=== PATIENT | female | born 1975 | race Caucasian/White ===

== ENCOUNTER 2017-08-26 07:55 | Emergency (ER) | payer OTHER ==
[~2017-08-26] VITALS: Ht 167.6 cm; Wt 102.1 kg
[2017-08-26] MEDS ORDERED: SPIR100T2 (08:17)
[2017-08-26] MEDS ORDERED: BUSP15TA60 (08:17)
[2017-08-26] MEDS ORDERED: CITA10TA7 (08:17)
[2017-08-26] MEDS ORDERED: METF1000 (08:17)
[2017-08-26] MEDS ORDERED: TRAM50TA2 (08:17)
--- NOTE | 2017-08-26 08:23 | ED Fall/Injury ---
General Chief Complaint: Trauma-Non Activation Stated Complaint: LT LEG PAIN, TAILBONE PAIN Nursing Triage Note: ARRIVED VIA WC TO ROOM 07. STATES SHE FELL LAST NIGHT HURTING HER LEFT KNEE AND TAILBONE. STATES SHE WAS DRINKING ETOH WHEN SHE FELL. HAS NOT TAKEN ANY MEDICATIONS FOR THE PAIN. Source: patient Exam Limitations: no limitations History of Present Illness Time seen by provider: 08:08 Initial Comments This 41-year-old woman presents to emergency room with complaints of left knee pain and tailbone pain after having a fall last night. She had been out at a local establishment and admits that alcohol contributed to her injury. She was not feeling much pain last night but woke in severe pain this morning. She also reports falling again in her bathroom at 03:00 because ambulation was impaired due to left knee pain. She has a history of prior meniscus repair on the left knee and states she was informed she will likely eventually need a knee replacement on the left. She is able to ambulate with much difficulty. She cannot recall the details of the mechanism of injury but states the pain is concentrated in the coccyx and left knee. She denies hitting her head. She has no head or neck pain. There is no loss of consciousness. She has not taken any medications for the pain this morning. She is also nauseous this morning secondary to the pain. Allergies and Home Medications Allergies Coded Allergies: No Known Drug Allergies (Unverified , 08/26/17) Home Medications Buspirone HCl 15 Mg Tablet, (Reported) Citalopram Hydrobromide 10 Mg Tablet, (Reported) Hydrocodone/Acetaminophen 1 Each Tablet, 1-2 EACH PO Q6H PRN for PAIN, #20 Prescribed by: DAY SILVA on 08/26/17 0954 Metformin HCl 1,000 Mg Tablet, (Reported) Spironolactone 100 Mg Tablet, (Reported) Tramadol HCl 50 Mg Tablet, (Reported) Constitutional: no symptoms reported Eyes: No Symptoms Reported Ears, Nose, Mouth, Throat: no symptoms reported Respiratory: no symptoms reported Cardiovascular: no symptoms reported Gastrointestinal: see HPI Genitourinary: no symptoms reported : No Musculoskeletal: see HPI Skin: no symptoms reported Psychiatric/Neurological: No Symptoms Reported All Other Systems Reviewed Negative Unless Noted: Yes Past Uylsfqb-Ohjmda-Qdvsdj Hx Patient Social History Recent Foreign Travel: No Contact w/Someone Who Travel: No Recent Infectious Disease Expo: No Surgeries History of Surgeries: Yes (HERNIA WITH MESH, ABLASION, GASTRIC BYPASS) Surgeries: Abdominal, Appendectomy, Gallbladder, Orthopedic (left knee meniscus repair), Tubal Ligation Respiratory History of Respiratory Disorde: No Cardiovascular History of Cardiac Disorders: No Neurological History of Neurological Disord: No Reproductive System : No Hx Reproductive Disorders: Yes Female Reproductive Disorders: Polycystic Ovarian Dis BAR USEFUL OR BUSSER History: Tubal Ligation Genitourinary History of Genitourinary Disor: No Gastrointestinal History of Gastrointestinal Di: 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) Musculoskeletal History of Musculoskeletal Dis: No Endocrine History of Endocrine Disorders: No HEENT History of HEENT Disorders: No Cancer History of Cancer: No Psychosocial History of Psychiatric Problem: Yes Behavioral Health Disorders: Depression Integumentary History of Skin or Integumenta: No Family Medical History Significant Family History: No Pertinent Family Hx Physical Exam Vital Signs Vital Sign - Last 12Hours 08/26/17 08:00 Temp 98.0 Pulse 90 Resp 18 B/P (MAP) 122/90 Pulse Ox 96 Capillary Refill : Less Than 3 Seconds General Appearance: WD/WN, no apparent distress HEENT: PERRL/EOMI, normal ENT inspection Neck: normal inspection Cardiovascular: regular rate, rhythm, no edema, no murmur Respiratory: lungs clear, normal breath sounds, no respiratory distress, no accessory muscle use Gastrointestinal: normal bowel sounds, non tender, soft Back: other (no tenderness to palpation over the lumbar spine. Tenderness to palpation over the coccyx.) Extremities: normal inspection, other (tenderness to palpation over the left knee joint line and with movement of the patella. 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, no motor/sensory deficits, alert, normal mood/affect, oriented x 3 Skin: normal color, warm/dry Bhavna Coma Score Best Eye Response: (4) Open Spontaneously Best Verbal Response: (5) Oriented Best Motor Response: (6) Obeys Commands [place] Total: 15 Progress/Results/Core Measures Results/Orders My Orders Orders - DAY RAY MD Ketorolac Injection (Toradol Injection) (08/26/17 08:30) Knee, Left, 3 Views (08/26/17 08:19) Sacrum And Coccyx (08/26/17 08:19) Ondansetron Oral Dissolve Tab (Zofran (08/26/17 08:30) Hydrocodone/Apap 5/325 Tablet (Lortab 5 (08/26/17 09:15) Crutches (08/26/17 09:46) Oxycodone/Apap 5/325mg Tablet (Percocet (08/26/17 10:00) Medications Given in ED Current Medications Medications Dose Ordered Sig/Marisela Route Start Time Stop Time Status Last Admin Dose Admin Acetaminophen/ Hydrocodone Bitart 1 tab ONCE ONCE PO 08/26/17 09:15 08/26/17 09:16 DC 08/26/17 09:16 1 TAB Ketorolac Tromethamine 60 mg ONCE ONCE IM 08/26/17 08:30 08/26/17 08:31 DC 08/26/17 08:28 60 MG Ondansetron HCl 8 mg ONCE ONCE SL 08/26/17 08:30 08/26/17 08:31 DC 08/26/17 08:28 8 MG Vital Signs/I&O Vital Sign - Last 12Hours 08/26/17 08:00 Temp 98.0 Pulse 90 Resp 18 B/P (MAP) 122/90 Pulse Ox 96 Blood Pressure Mean: 101 Progress Note #1: Time: 08:31 Progress Note Toradol and Zofran are being given for pain management. Patient will then go for x-rays. Progress Note #2: Time: 09:12 Progress Note Pain has not improved much with Toradol. A hydrocodone has been ordered. X- rays have been reviewed by me and reports are pending. Nausea has improved. Progress Note #3: Time: 09:55 Progress Note No bony injury was identified. There is questionable coccygeal fracture. Patient is being referred to orthopedics. MRI was not available for further assessment in the ER. Patient was additionally given Percocet prior to dismissal for further pain control. She is being out fitted with crutches and a knee immobilizer. Diagnostic Imaging Diagonstic Imaging: Xray Plain Films/CT/US/NM/MRI: knee Comments X-ray of the left knee viewed by me and report reviewed. See report below: NAME: REUBEN CRAIG [facility] REC#: [id number] PT STATUS: REG ER : 1975 PHYSICIAN: DAY RAY MD ADMIT DATE: 08/26/17/ER Draft Date of Exam:08/26/17 KNEE, LEFT, 3 VIEWS Three views of the left knee. INDICATION: Fall. FINDINGS: No fracture, dislocation or radiopaque foreign body is seen. There is a small to moderate suprapatellar effusion identified. Minimal marginal osteophytes are seen with no significant joint space narrowing. IMPRESSION: Uzvpz-ip-daitnqmd suprapatellar effusion is evident. Minimal degenerative changes. Dictated on workstation # [id number] Dict: 08/26/17911 Trans: 08/26/17916 [facility] [id number] Interpreted by: BUDDY MONSIVAIS MD Diagonstic Imaging: Xray Plain Films/CT/US/NM/MRI: other (sacrum and coccyx) Comments X-ray viewed by me and report reviewed. See report below: NAME: REUBEN CRAIG [facility] REC#: [id number] PT STATUS: REG ER : 1975 PHYSICIAN: DAY RAY MD ADMIT DATE: 08/26/17/ER Draft Date of Exam:08/26/17 SACRUM AND COCCYX EXAMINATION: 3 views of the sacrum and coccyx. INDICATION: Fall. FINDINGS: There is a slightly inward configuration of the distal coccyx. It is uncertain if this is posttraumatic. No prior studies are available for comparison. No obvious fracture. The SI joints have normal alignment. IMPRESSION: Prominent inward curvature of the distal coccyx is seen. This could potentially be related to injury of indeterminate age. No definite fracture. If there is high index of suspicion, then CT scan of the sacrum and coccyx would be helpful. Dictated on workstation # [id number] Dict: 08/26/17912 Trans: 08/26/17918 [facility] [phone] Interpreted by: BUDDY MONSIVAIS MD Departure Impression Impression: Primary Impression: Fall on same level Qualified Codes: W18.30XA - Fall on same level, unspecified, initial encounter Additional Impressions: Left knee pain Qualified Codes: M25.562 - Pain in left knee Coccyx pain Disposition: 01 HOME, SELF-CARE Condition: Improved Departure-Patient Inst. Referrals: NO,LOCAL PHYSICIAN (PCP/Family) Primary Care Physician Add. Discharge Instructions: Rest your injuries as needed. Icing in 20 minute intervals to affected areas may be helpful in reducing pain and swelling. Follow-up with your orthopedic provider as soon as possible for reassessment. Use your crutches and knee immobilizer or Paco wrap as needed for support. Use your tramadol (Ultram) and Tylenol (acetaminophen) for gqjc-bo-wwzaprrl pain. Use the hydrocodone as prescribed for more severe pain. It may be advisable to use an over-the- counter stool softener such as Colace while you're using narcotic pain medications. You should not drive or operate machinery while on hydrocodone. Discuss the potential for further imaging with your orthopedic or primary care provider. Imaging might include MRI of the knee and MRI or CT of the pelvis. Return to care if symptoms worsen. You may use an innertube or donut pillow to help alleviate pressure on the tailbone. Avoid frequent or excessive alcohol consumption as this may affect your gastrointestinal health after having gastric bypass. All discharge instructions reviewed with patient and/or family. Voiced understanding. Scripts Hydrocodone/Acetaminophen (Hydrocodon -Acetaminophen 5-325) 1 Each Tablet 1-2 EACH PO Q6H Y for PAIN, #20 TAB Prov: DAY RAY MD 08/26/17 DAY RAY MD Aug 26, 2017 08:23
[2017-08-26] MEDS ORDERED: KETOROLAC 60 MG/2 ML VIAL IM ONE (08:30)
[2017-08-26] MEDS ORDERED: ONDANSETRON 4 MG (ZOFRAN) ORAL DISSOLVE TAB SL ONE (08:30)
[2017-08-26] MEDS ORDERED: HYDROcodone/APAP 5 MG/325 MG (LORTAB) TAB PO ONE (09:15)
--- NOTE | 2017-08-26 09:17 | Diagnostic Imaging Report ---
Three views of the left knee. INDICATION: Fall. FINDINGS: No fracture, dislocation or radiopaque foreign body is seen. There is a small to moderate suprapatellar effusion identified. Minimal marginal osteophytes are seen with no significant joint space narrowing. IMPRESSION: Lkmgo-gg-lxfidjov suprapatellar effusion is evident. Minimal degenerative changes. Dictated by: Dictated on workstation # [id number]
--- NOTE | 2017-08-26 09:20 | Diagnostic Imaging Report ---
EXAMINATION: 3 views of the sacrum and coccyx. INDICATION: Fall. FINDINGS: There is a slightly inward configuration of the distal coccyx. It is uncertain if this is posttraumatic. No prior studies are available for comparison. No obvious fracture. The SI joints have normal alignment. IMPRESSION: Prominent inward curvature of the distal coccyx is seen. This could potentially be related to injury of indeterminate age. No definite fracture. If there is high index of suspicion, then CT scan of the sacrum and coccyx would be helpful. Dictated by: Dictated on workstation # [id number]
[2017-08-26] MEDS ORDERED: HYDR-3812 PO (09:54)
[2017-08-26] MEDS ORDERED: oxyCODONE/APAP 5/325MG (PERCOCET 5) TABLET PO ONE (10:00)
[2017-08-26 10:08] VITALS: BP 126/87
== END 2017-08-26 10:08 | disposition home or self-care (01) ==
LOC: ER 08:00
DX: M25.562 Pain in left knee (principal); M53.3 Sacrococcygeal disorders, not elsewhere classified; F32.9 Major depressive disorder, single episode, unspecified; Z79.84 Long term (current) use of oral hypoglycemic drugs; Z90.49 Acquired absence of other specified parts of digestive tract; Z98.51 Tubal ligation status; Z98.84 Bariatric surgery status; Z87.19 Personal history of other diseases of the digestive system; W18.30XA Fall on same level, unspecified, initial encounter; Y92.002 Bathroom of unspecified non-institutional (private) residence as the place of occurrence of the external cause
CPT/HCPCS: 72220; 73562; 96372; 99284

== ENCOUNTER 2017-12-04 09:03 | Observation (INO) | payer BC, OTHER ==
[~2017-12-04] VITALS: Ht 167.6 cm; Wt 108.6 kg
[2017-12-04] VITALS (9 sets, daily range): BP systolic 97–131; BP diastolic 53–72
[~2017-12-04 09:03] MED LIST: ACHD5005 PO; BUSP15TA60; CITA10TA7; METF1000 PO; SPIR100T2 PO; TRAM50TA2
[2017-12-04] MEDS ORDERED: ASPIRIN 81 MG CHEW (CHILDREN'S ASA) PO ONE (10:15)
[2017-12-04 10:41] LABS: BASOPHILS % (AUTO) 1 % (0-10); EOSINOPHILS # (AUTO) 0.1 10^3/uL (0.0-0.3); EOSINOPHILS % (AUTO) 2 % (0-10); HEMATOCRIT 37 % (35-52); HEMOGLOBIN 12.3 G/DL (11.5-16.0); LYMPHOCYTES # (AUTO) 1.7 X 10^3 (1.0-4.0); LYMPHOCYTES % (AUTO) 30 % (12-44); MEAN CORPUSCULAR HEMOGLOBIN 29 PG (25-34); MEAN CORPUSCULAR HGB CONC 34 G/DL (32-36); MEAN CORPUSCULAR VOLUME 85 FL (80-99); MEAN PLATELET VOLUME 8.6 FL (7.4-10.4); MONOCYTES # (AUTO) 0.5 X 10^3 (0.0-1.0); MONOCYTES % (AUTO) 8 % (0-12); NEUTROPHILS # (AUTO) 3.5 X 10^3 (1.8-7.8); NEUTROPHILS % (AUTO) 60 % (42-75); PLATELET COUNT 265 10^3/uL (130-400); RED BLOOD COUNT 4.29 10^6/uL (4.35-5.85); RED CELL DISTRIBUTION WIDTH 12.9 % (10.0-14.5); WHITE BLOOD COUNT 5.8 10^3/uL (4.3-11.0)
[2017-12-04 10:53] LABS: PROTHROMBIN TIME PATIENT 13.4 SEC (12.2-14.7)
[2017-12-04 10:56] LABS: FIBRIN DEGRADATION PRODUCTS 0.88 UG/ML (0.00-0.49)
[2017-12-04 11:01] LABS: ALANINE AMINOTRANSFERASE 70 U/L (0-55); ALBUMIN 3.8 GM/DL (3.2-4.5); ALKALINE PHOSPHATASE 70 U/L (40-136); BILIRUBIN,TOTAL 0.4 MG/DL (0.1-1.0); BUN/CREATININE RATIO 19; CALCIUM 9.4 MG/DL (8.5-10.1); CARBON DIOXIDE 25 MMOL/L (21-32); CHLORIDE 105 MMOL/L (98-107); CREATININE SERUM 0.64 MG/DL (0.60-1.30); GFR ESTIMATED > 60; GLUCOSE 92 MG/DL (70-105); MAGNESIUM 1.9 MG/DL (1.8-2.4); POTASSIUM 4.4 MMOL/L (3.6-5.0); SODIUM 139 MMOL/L (135-145); TOTAL PROTEIN 6.6 GM/DL (6.4-8.2)
--- NOTE | 2017-12-04 11:04 | Diagnostic Imaging Report ---
EXAM: CHEST 1 VIEW, AP/PA ONLY INDICATION: Chest pain. Dyspnea. COMPARISON: None. FINDINGS: Normal heart size and pulmonary vascularity. No focal pulmonary opacity, pleural effusion or pneumothorax. Osseous structures are unremarkable. Surgical clips in the upper abdomen. IMPRESSION: No acute cardiopulmonary findings. Dictated by: Dictated on workstation # [id number]
[2017-12-04 11:07] LABS: MYOGLOBIN SERUM 30.3 NG/ML (10.0-92.0)
--- NOTE | 2017-12-04 11:10 | ED Chest Pain ---
General Chief Complaint: Chest Pain Stated Complaint: CP Source: patient Exam Limitations: no limitations History of Present Illness Time seen by provider: 09:18 Initial Comments This 42-year-old woman presents to emergency room with left upper chest pain and some shortness of breath that started Tuesday. She had anterior cruciate ligament reconstruction of her left knee on October 25. She has a prior history of smoking and quit 2-3 months ago. She has family history of heart disease. Her father had heart disease in his 50s. She is concerned about possible pulmonary embolism or other causes of chest pain. She is pain-free at the time of presentation. The pain has no alleviating or exacerbating factors. She denies any nausea, vomiting, diarrhea, or lightheadedness. Allergies and Home Medications Allergies Coded Allergies: NSAIDS (Non-Steroidal Anti-Inflamma (Verified Allergy, Unknown, 12/04/17) States not to take due to gastric bypass. aspirin (Verified Allergy, Unknown, 12/04/17) States instructed not to take due to gastric bypass Home Medications Citalopram Hydrobromide 40 Mg Tablet, 40 MG PO DAILY, (Reported) Docusate Sodium 100 Mg Capsule, 100-300 MG PO DAILY, (Reported) TAKES 1 TO 3 (100 MG) CAPSULES Hydrocodone/Acetaminophen 1 Each Tablet, 1-2 TAB PO Q6H PRN for PAIN-MODERATE, ( Reported) Loratadine 10 Mg Tablet, 10 MG PO DAILY, (Reported) Metformin HCl 1,000 Mg Tablet, 1,000 MG PO DAILY, (Reported) LAST FILLED 02/18/17 #180 Spironolactone 100 Mg Tablet, 100 MG PO DAILY, (Reported) LAST FILLED 08/21/17 #90 [Leg Cramps Pm] , 2 TAB PO PRN PRN for LEG CRAMPS, (Reported) Review of Systems Constitutional: no symptoms reported EENTM: No Symptoms Reported Respiratory: See HPI, Shortness of Air Cardiovascular: See HPI, Chest Pain Gastrointestinal: No Symptoms Reported Genitourinary: No Symptoms Reported Musculoskeletal: see HPI Skin: no symptoms reported Psychiatric/Neurological: No Symptoms Reported Endocrine: No Symptoms Reported Hematologic/Lymphatic: No Symptoms Reported Past Gullwcz-Zwzsfl-Lpglab Hx Patient Social History Recent Foreign Travel: No Contact w/Someone Who Travel: No Surgeries History of Surgeries: Yes (HERNIA WITH MESH, UTERINE ABLASION, GASTRIC BYPASS) Surgeries: Abdominal, Appendectomy, Breast (Lumpectomy), Gallbladder, Orthopedic, Tonsillectomy, Tubal Ligation Respiratory History of Respiratory Disorde: Yes Respiratory Disorders: Asthma Cardiovascular History of Cardiac Disorders: No Neurological History of Neurological Disord: No Reproductive System : No Hx Reproductive Disorders: Yes Female Reproductive Disorders: 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 Genitourinary History of Genitourinary Disor: No Gastrointestinal History of Gastrointestinal Di: 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) Gastrointestinal Disorders: Irritable Bowel Musculoskeletal History of Musculoskeletal Dis: No Endocrine History of Endocrine Disorders: No HEENT History of HEENT Disorders: No Cancer History of Cancer: No Psychosocial History of Psychiatric Problem: Yes Behavioral Health Disorders: Depression Integumentary History of Skin or Integumenta: No Family Medical History Significant Family History: Heart Disease (Father age 50s) Physical Exam Vital Signs Vital Sign - Last 12Hours 12/04/17 09:10 Temp 97.5 Pulse 84 Resp 16 B/P (MAP) 132/80 (97) Pulse Ox 98 O2 Delivery Room Air Capillary Refill : General Appearance: No Apparent Distress, WD/WN HEENT: PERRL/EOMI, Normal ENT Inspection, Pharynx Normal Neck: Normal Inspection Respiratory: Chest Non Tender, Lungs Clear, Normal Breath Sounds, No Accessory Muscle Use, No Respiratory Distress Cardiovascular: Regular Rate, Rhythm, No Edema, No Murmur, Normal Peripheral Pulses Gastrointestinal: Normal Bowel Sounds, Non Tender, Soft Extremity: No Calf Tenderness, No Pedal Edema, Other (Left knee in a surgical dressing and brace) Neurologic/Psychiatric: Alert, Oriented x3, No Motor/Sensory Deficits, Normal Mood/Affect, pail tester II-XII Norm as Tested Skin: Normal Color, Warm/Dry Progress/Results/Core Measures Results/Orders Lab Results Laboratory Tests Test 12/04/17 10:30 Range/Units White Blood Count 5.8 4.3-11.0 10^3/uL Red Blood Count 4.29 L 4.35-5.85 10^6/uL Hemoglobin 12.3 11.5-16.0 G/DL Hematocrit 37 35-52 % Mean Corpuscular Volume 85 80-99 FL Mean Corpuscular Hemoglobin 29 25-34 PG Mean Corpuscular Hemoglobin Concent 34 32-36 G/DL Red Cell Distribution Width 12.9 10.0-14.5 % Platelet Count 265 130-400 10^3/uL Mean Platelet Volume 8.6 7.4-10.4 FL Neutrophils (%) (Auto) 60 42-75 % Lymphocytes (%) (Auto) 30 12-44 % Monocytes (%) (Auto) 8 0-12 % Eosinophils (%) (Auto) 2 0-10 % Basophils (%) (Auto) 1 0-10 % Neutrophils # (Auto) 3.5 1.8-7.8 X 10^3 Lymphocytes # (Auto) 1.7 1.0-4.0 X 10^3 Monocytes # (Auto) 0.5 0.0-1.0 X 10^3 Eosinophils # (Auto) 0.1 0.0-0.3 10^3/uL Basophils # (Auto) 0.0 0.0-0.1 10^3/uL Prothrombin Time 13.4 12.2-14.7 SEC INR Comment 1.0 0.8-1.4 Activated Partial Thromboplast Time 32 24-35 SEC D-Dimer 0.88 H 0.00-0.49 UG/ML Sodium Level 139 135-145 MMOL/L Potassium Level 4.4 3.6-5.0 MMOL/L Chloride Level 105 98-107 MMOL/L Carbon Dioxide Level 25 21-32 MMOL/L Anion Gap 9 5-14 MMOL/L Blood Urea Nitrogen 12 7-18 MG/DL Creatinine 0.64 0.60-1.30 MG/DL Estimat Glomerular Filtration Rate > 60 BUN/Creatinine Ratio 19 Glucose Level 92 70-105 MG/DL Calcium Level 9.4 8.5-10.1 MG/DL Magnesium Level 1.9 1.8-2.4 MG/DL Total Bilirubin 0.4 0.1-1.0 MG/DL Aspartate Amino Transf (AST/SGOT) 64 H 5-34 U/L Alanine Aminotransferase (ALT/SGPT) 70 H 0-55 U/L Alkaline Phosphatase 70 40-136 U/L Myoglobin 30.3 10.0-92.0 NG/ML Troponin I < 0.30 <0.30 NG/ML Total Protein 6.6 6.4-8.2 GM/DL Albumin 3.8 3.2-4.5 GM/DL My Orders Orders - DAY RAY MD Ekg Tracing (12/04/17 09:18) Continuous Ekg Monitoring (12/04/17 09:18) Cbc With Automated Diff (12/04/17 10:05) Magnesium (12/04/17 10:05) Chest 1 View, Ap/Pa Only (12/04/17 10:05) Cardiac Profile 1 (12/04/17 10:05) Comprehensive Metabolic Panel (12/04/17 10:05) Myoglobin Serum (12/04/17 10:05) Protime With Inr (12/04/17 10:05) Partial Thromboplastin Time (12/04/17 10:05) O2 (12/04/17 10:05) Monitor-Rhythm Ecg Trace Only (12/04/17 10:05) Aspirin Chewable Tablet (Baby Aspirin Ch (12/04/17 10:15) Saline Lock/Iv-Start (12/04/17 10:05) Fibrin Degradation Products (12/04/17 10:05) Ct Angio Chest W (12/04/17 11:05) Iohexol Injection (Omnipaque 350 Mg/Ml 1 (12/04/17 11:30) Sodium Chloride Flush (Catheter Flush Sy (12/04/17 11:30) Ns (Ivpb) (Sodium Chloride 0.9% Ivpb Bag (12/04/17 11:30) Pharmacy Communication (Pharmacy Communi (12/04/17 11:22) Medications Given in ED Vital Signs/I&O Vital Sign - Last 12Hours 12/04/17 09:10 Temp 97.5 Pulse 84 Resp 16 B/P (MAP) 132/80 (97) Pulse Ox 98 O2 Delivery Room Air Progress Note #1: Progress Note Patient was experiencing chest pain in the postoperative period. She also had shortness of breath. Pain had resolved by the time of arrival. Pulmonary embolus was of concern to her given her recent surgery. Patient also has a smoking history, family history of heart disease, and is over age 40. She therefore has some risk factors for cardiac disease as well. Chest pain protocol was followed. She received aspirin. EKG showed no ischemia. D-dimer was mildly elevated. CT angiogram of the chest has been ordered. Progress Note #2: Time: 12:30 Progress Note Patient's workup was unremarkable. She had one brief recurrence of pain but has otherwise been pain free. Case was reviewed with Dr. Winters to recommended offering patient admission for observation versus close outpatient follow-up for stress testing. Patient elects to be admitted which is certainly reasonable. Dr. Winters presented to the emergency room to evaluate the patient personally. ECG Initial ECG Impression Date: Dec 04, 2017 Initial ECG Impression Time: 09:18 Initial ECG Rate: 63 Initial ECG Rhythm: Normal Sinus Initial ECG Impression: Normal Comment Sinus rhythm with no ST elevation or depression. Automated read states incomplete right bundle branch block. No axis deviation. Diagnostic Imaging Diagonstic Imaging: Xray Plain Films/CT/US/NM/MRI: chest Comments Chest x-ray viewed by me and report reviewed. See report below: NAME: REUBEN CRAIG [facility] REC#: [id number] PT STATUS: REG ER : 1975 PHYSICIAN: DAY RAY MD ADMIT DATE: 12/04/17/ER Draft Date of Exam:12/04/17 CHEST 1 VIEW, AP/PA ONLY EXAM: CHEST 1 VIEW, AP/PA ONLY INDICATION: Chest pain. Dyspnea. COMPARISON: None. FINDINGS: Normal heart size and pulmonary vascularity. No focal pulmonary opacity, pleural effusion or pneumothorax. Osseous structures are unremarkable. Surgical clips in the upper abdomen. IMPRESSION: No acute cardiopulmonary findings. Dictated on workstation # [id number] Dict: 12/04/17 1058 Trans: 12/04/17 1104 WIL [id number] Interpreted by: TONI ZHANG MD Diagonstic Imaging: CT Plain Films/CT/US/NM/MRI: chest Comments CT angiogram of the chest was viewed by me and report reviewed. See report below: NAME: REUBEN CRAIG [facility] REC#: [id number] PT STATUS: REG ER : 1975 PHYSICIAN: DAY RAY MD ADMIT DATE: 12/04/17/ER Draft Date of Exam:12/04/17 CT ANGIO CHEST W PROCEDURE: CT angiography of the chest with contrast. TECHNIQUE: Multiple contiguous axial images were obtained through the chest after uneventful bolus administration of intravenous contrast. Reconstructed CTA MIP acquisitions were also performed. INDICATION: Chest pain, shortness of breath, recent knee surgery. COMPARISON: None. FINDINGS: The heart, pulmonary arteries and aorta are grossly normal. There is no pulmonary embolism. There is no lymphadenopathy, pleural or pericardial effusion. The lungs are clear. There is no focal infiltrate or atelectasis. No pneumothorax is identified. Osseous structures are age-appropriate. Visualized upper abdominal organs demonstrate no acute abnormality. IMPRESSION: Negative CT angiogram of the chest. No pulmonary embolism identified. Dictated on workstation # [id number] Dict: 12/04/17 1139 Trans: 12/04/17 1147 [id number] Interpreted by: MONICA GUILLEN Departure Communication (Admissions) Time/Spoke to Admitting Phy: 13:[address] Regan Time/Spoke to Consulting Phy: 12:30 Communication/Consulting Dr. Winters Impression Impression: Primary Impression: Chest pain Qualified Codes: R07.9 - Chest pain, unspecified Additional Impression: Dyspnea Qualified Codes: R06.00 - Dyspnea, unspecified Disposition: 09 ADMITTED INPATIENT Condition: Improved Admissions Decision to Admit Reason: Admit from ER (General) Decision to Admit/Date: Dec 04, 2017 Time/Decision to Admit Time: 12:30 Departure-Patient Inst. Referrals: NO,LOCAL PHYSICIAN (PCP) Primary Care Physician DAY RAY MD Dec 04, 2017 11:10
[2017-12-04] MEDS ORDERED: CATHETER FLUSH 10 ML SYR IV PRN ×2 (11:30→16:45)
[2017-12-04] MEDS ORDERED: IOHEXOL 350 MG/ML 150 ML (OMNIPAQUE 350) VIAL IV ONE (11:30)
[2017-12-04] MEDS ORDERED: NS 100 ML (IVPB) BAG IV ONE (11:30)
--- NOTE | 2017-12-04 11:48 | Diagnostic Imaging Report ---
PROCEDURE: CT angiography of the chest with contrast. TECHNIQUE: Multiple contiguous axial images were obtained through the chest after uneventful bolus administration of intravenous contrast. Reconstructed CTA MIP acquisitions were also performed. INDICATION: Chest pain, shortness of breath, recent knee surgery. COMPARISON: None. FINDINGS: The heart, pulmonary arteries and aorta are grossly normal. There is no pulmonary embolism. There is no lymphadenopathy, pleural or pericardial effusion. The lungs are clear. There is no focal infiltrate or atelectasis. No pneumothorax is identified. Osseous structures are age-appropriate. Visualized upper abdominal organs demonstrate no acute abnormality. IMPRESSION: Negative CT angiogram of the chest. No pulmonary embolism identified. Dictated by: Dictated on workstation # [id number]
--- NOTE | 2017-12-04 13:36 | Consultation-Cardiology ---
HPI-Cardiology Cardiology Consultation: Date of Consultation 12/04/17 Date of Admission Attending Physician Admitting Physician Genny,Local Physician Consulting Physician Desirae WINTERS MD HPI: Time Seen by Provider: 13:33 Chief Complaint: Chest pain This is a 42-year-old lady who has history of active smoking and premature coronary artery disease in the family. She had a recent knee surgery. She presented left-sided chest pain. No radiation or excessive abating or relieving factors. Moderate intensity. No associated other symptoms. She denies shortness of breath, syncope, near-syncope, palpitation, lower extremity swelling. Review of Systems-Cardiology Review of Systems Constitutional: No As described under HPI, No no symptoms reported, No chills, No fever, No lightheadedness, No malaise, No tiredness, No weight loss, No weight gain, No other Eyes: No As described under HPI, No no symptoms reported, No blindness, No blurred vision, No contact lenses, No drainage, No decreased acuity, No foreign body sensation, No glasses, No inflammation, No pain, No photophobia, No previous injury, No shadows, No tunnel vision, No other, No vision change Ears/Nose/Throat: No As described under HPI, No no symptoms reported, No chronic hearing loss, No epistaxis, No ear discharge, No ear pain, No loose teeth, No mouth pain, No mouth swelling, No nasal drainage, No nose pain, No recent hearing loss, No throat pain, No throat swelling, No ulcerations, No other Respiratory: No no symptoms reported, No As described under HPI, No cough, No orthopnea, No shortness of breath, No SOB with excertion, No SOB at rest, No stridor, No wheezing, No other Cardiovascular: chest pain Gastrointestinal: No no symptoms reported, No As described under HPI, No abdomen distended, No abdominal pain, No blood streaked bowels, No constipation , No diarrhea, No difficulty swallowing, No nausea, No poor appetite, No poor fluid intake, No rectal bleeding, No vomiting, No other, No nausea/vomiting/ diarrhea, No stool coloration changes Genitourinary: No no symptoms reported, No As described under HPI, No burning, No dysuria, No discharge, No frequency, No flank pain, No hematuria, No incontinence, No pain, No urgency, No other, No urine frequency changes, No urine coloration changes Musculoskeletal: No no symptoms reported, No As describe under HPI, No back pain, No gout, No joint pain, No joint swelling, No muscle pain, No muscle stiffness, No neck pain, No other Skin: No no symptoms reported, No As described under HPI, No change in color, No change in hair/nails, No dryness, No lesions, No lumps, No rash, No other, No skin related problems, No ulcerations, No rash on exposed areas, No ulcerations on exposed areas Psychiatric/Neurological: No no symptoms reported, No As described under HPI, No anxiety, No depression, No emotional problems, No headache, No numbness, No pre-existing deficit, No seizure, No tingling, No tremors, No weakness, No other , No focal weakness, No syncope [id number]-[id number] Hx Patient Social History Recent Foreign Travel: No Past Medical History PMH As described under Assessment. Allergies and Home Medications Allergies Coded Allergies: No Known Drug Allergies (Unverified , 08/26/17) Home Medications Buspirone HCl 15 Mg Tablet, (Reported) Citalopram Hydrobromide 10 Mg Tablet, (Reported) Hydrocodone Bit/Acetaminophen 1 Each Tablet, 1-2 EACH PO Q6H PRN for PAIN, #20 Prescribed by: DAY SILVA on 08/26/17 0954 Metformin HCl 1,000 Mg Tablet, (Reported) Spironolactone 100 Mg Tablet, (Reported) Tramadol HCl 50 Mg Tablet, (Reported) Physical Exam-Cardiology Physical Exam Vital Signs/I&O Capillary Refill : Constitutional: No appears stated age, No AAO x 3, No apparent distress, No PERRL, No well-developed, No well-nourished, No other HEENT: No PERRL, No normal ENT inspection, No TMs normal, No pharynx normal, No scleral icterus (R), No scleral icterus (L), No pale conjunctivae (R), No pale conjunctivae (L), No photophobia, No TM abnormal (R), No TM abnormal (L), No pharyngeal erythema, No tonsillar exudate, No other, No discharge, No EOMI, No hearing is well preserved, No hard of hearing, No oral hygience is good, No ulceration, No xanthelasmas are seen Neck: No non-tender, No full range of motion, No supple, No normal inspection, No carotid bruit, No limited range of motion, No lymphadenopathy (R), No lymphadenopathy (L), No tender lateral, No tender midline, No thyromegaly, No other, No carotid pulses are 2 + bilaterally, No with good upstrokes Respiratory: No accessory muscle use, No respiratory distress, No chest tender , No chest expansion is symmetric, No chest is bilaterally symmetric, No lungs clear to percussion, No lungs clear to auscultation, No crackles, No rhonchi, No rales, No stridor, No wheezing, No pleural rub, No other Cardiovascular: regular rate-rhythm, No irregularly irregular, No extra beats, No parasternal heave is noted, No JVD, No edema, No bradycardia, No tachycardia , No point of maximal impulse, No cardiac thrills are palpable, No S1 and S2, No gallop/S3, No gallop/S4, No diastolic murmur, No systolic murmur, No friction rub, No click, No other Gastrointestinal: No tender, No soft, No round, No distended, No pulsatile mass , No organomegaly, No guarding, No rebound, No tenderness, No hernia, No mass, No audible bowel sounds, No abnormal bowel sounds, No abdominal bruits, No spleenomegaly, No other Rectal: deferred Extremities: No normal range of motion, No non-tender, No normal inspection, No pedal edema, No calf tenderness, No normal capillary refill, No pelvis stable , No calf tenderness, No inflammation, No pedal edema, No slow capillary refill , No swelling, No other, No abrasion, No clubbing, No cyanosis, No ecchymosis, No laceration, No no lower extremity edema bilateral, No significant edema, No tenderness, No wound Neurologic/Psychiatric: No paste maker II-XII nml as tested, No no motor/sensory deficits, No alert, No normal mood/affect, No oriented x 3, No abnormal cerebellar tests, No abnormal paste maker II-XII, No abnormal gait, No aphasia, No EOM palsy, No facial droop, No motor weakness, No sensory deficit, No depressed affect, No disoriented x 3, No other, No grossly intact, No power is 5/5 both on sides Skin: No normal color, No warm/dry, No cyanosis, No cool, No diaphoresis, No damp, No ecchymosis, No jaundice, No mottled, No pallor, No rash, No tattoos/ piercings, No ulcerations, No rash on exposed areas, No ulcerations on exposed areas, No other Data Review Labs Laboratory Tests 12/04/17 10:30: White Blood Count 5.8, Red Blood Count 4.29L, Hemoglobin 12.3, Hematocrit 37, Mean Corpuscular Volume 85, Mean Corpuscular Hemoglobin 29, Mean Corpuscular Hemoglobin Concent 34, Red Cell Distribution Width 12.9, Platelet Count 265, Mean Platelet Volume 8.6, Neutrophils (%) (Auto) 60, Lymphocytes (%) (Auto) 30, Monocytes (%) (Auto) 8, Eosinophils (%) (Auto) 2, Basophils (%) (Auto) 1, Neutrophils # (Auto) 3.5, Lymphocytes # (Auto) 1.7, Monocytes # (Auto) 0.5, Eosinophils # (Auto) 0.1, Basophils # (Auto) 0.0, Prothrombin Time 13.4, INR Comment 1.0, Activated Partial Thromboplast Time 32, D-Dimer 0.88H, Sodium Level 139, Potassium Level 4.4, Chloride Level 105, Carbon Dioxide Level 25, Anion Gap 9, Blood Urea Nitrogen 12, Creatinine 0.64, Estimat Glomerular Filtration Rate > 60, BUN/Creatinine Ratio 19, Glucose Level 92, Calcium Level 9.4, Magnesium Level 1.9, Total Bilirubin 0.4, Aspartate Amino Transf (AST/SGOT ) 64H, Alanine Aminotransferase (ALT/SGPT) 70H, Alkaline Phosphatase 70, Myoglobin 30.3, Troponin I < 0.30, Total Protein 6.6, Albumin 3.8 ECG Impression ECG Initial ECG Rhythm: Normal Sinus Initial ECG Impression: Normal A/P-Cardiology Assessment/Admission Diagnosis Chest pain, active smoking, elevated d-dimer, recent knee surgery. Plan Chest pain with elevated d-dimer. Because of recent knee surgery CT angiography of the chest was done which ruled out pulmonary embolism. Patient has history of active smoking and premature coronary artery disease in the family therefore we will do a rule out with serial troponins. EKG is negative. Pharmacological nuclear stress test in the morning. I will also request an echocardiogram. Smoking cessation was strongly recommended. Thank you for your consultation. Please call me if you have any questions. Noam Winters MD, FACP, FACC, FSCAI, FHRS, CCDS Interventional Cardiology Cardiac Electrophysiology Vascular Medicine and Endovascular Interventions Desirae WINTERS MD Dec 04, 2017 13:36
--- NOTE | 2017-12-04 14:18 | History & Physical-Hospitalist ---
HPI History of Present Illness: HPI/Chief Complaint CC: Chest pain HPI: This is a 42yoWF patient with h/o asthma with rare flare, PCOS and FH of premature CAD who presents to the ER w/c/o CP. She had left knee ACL surgery by Dr Martinez on 11/25/17 and has been in a immobilizer since surgery who began having chest pressure and worsening as the hours passed last night and today. She had a negative w/u in ER including CT chest angiogram to r/o PE. Due to multiple risk factors and FH she was deemed meeting criteria for EST for risk stratification per Dr Winters. She reports a yeast infection since abx given after knee surgery and the fact that she used to be on Advair and Singulair for asthma but has not taken it for years but suspects the chest pain may be related to asthma. Source: patient Exam Limitations: no limitations Date Seen 12/04/17 Time Seen by Provider: 14:00 Attending Physician Mariah Regan DO PCP No,Local Physician Referring Physician Date of Admission Dec 04, 2017 at 13:43 Home Medications & Allergies Home Medications Reviewed patient Home Medication Reconciliation Form Allergies Allergies Coded Allergies NSAIDS (Non-Steroidal Anti-Inflamma (Verified Allergy, Unknown, 12/04/17) States not to take due to gastric bypass. aspirin (Verified Allergy, Unknown, 12/04/17) States instructed not to take due to gastric bypass Past [id number]-[id number] Hx Patient Social History Marrital Status: Employed/Student: employed ([employer] ) Smoking Status: Former Smoker (cloves) Recent Foreign Travel: No Contact w/other who traveled: No Surgeries Yes (HERNIA WITH MESH, ABLASION, GASTRIC BYPASS) Abdominal, Appendectomy, Gallbladder, Orthopedic (left knee ACL 11/25/17 Dr Martinez), Tubal Ligation Respiratory Yes Asthma Cardiovascular No Neurological No Reproductive System Hx Reproductive Disorders: Yes Female Reproductive Disorders: Polycystic Ovarian Dis RAT POISONER History: Tubal Ligation Genitourinary No Gastrointestinal 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) Irritable Bowel Musculoskeletal No Endocrine History of Endocrine Disorders: No HEENT History of HEENT Disorders: No Cancer No Psychosocial History of Psychiatric Problem: Yes Behavioral Health Disorders: Depression Integumentary History of Skin or Integumenta: No Family Medical History Significant Family History: No Pertinent Family Hx Review of Systems Constitutional: see HPI EENTM: no symptoms reported Respiratory: short of breath Cardiovascular: chest pain Gastrointestinal: nausea Genitourinary: no symptoms reported Musculoskeletal: joint pain (left knee) Skin: no symptoms reported Psychiatric/Neurological: No Symptoms Reported All Other Systems Reviewed Negative Unless Noted: Yes Physical Exam Physical Exam Vital Signs Capillary Refill : General Appearance: No Apparent Distress, WD/WN, Obese Eyes: Bilateral Eye Normal Inspection, Bilateral Eye PERRL HEENT: PERRL/EOMI, Normal ENT Inspection, Pharynx Normal Neck: Full Range of Motion, Normal Inspection, Non Tender, Supple, Carotid Bruit Respiratory: Chest Non Tender, Lungs Clear, Normal Breath Sounds, No Accessory Muscle Use, No Respiratory Distress Cardiovascular: Regular Rate, Rhythm, No Edema, No Gallop, No JVD, No Murmur, Normal Peripheral Pulses Gastrointestinal: Normal Bowel Sounds, No Organomegaly, No Pulsatile Mass, Non Tender, Soft Back: Normal Inspection, No CVA Tenderness, No Vertebral Tenderness Extremity: Normal Capillary Refill, Normal Inspection, Normal Range of Motion ( except left leg due to immobilizer in place), Non Tender, No Calf Tenderness, No Pedal Edema Neurologic/Psychiatric: Alert, Oriented x3, No Motor/Sensory Deficits, Normal Mood/Affect Skin: Normal Color, Warm/Dry Lymphatic: No Adenopathy Results Results/Procedures Lab Laboratory Tests 12/04/17 10:30 Assessment/Plan Admission Diagnosis Assessment: Chest pain with multiple risk factors for acute coronary syndrome PCOS Acute vaginal yeast infection Asthma with rare flare not on MDI's for years Former smoker of cloves Recent left knee arthroscopy 11/25/[address] chest for PE as source of CP Gastric bypass vitamin deficiencies Assessment and Plan Plan: EST Diflucan Albuterol MARIAH Colby DO Dec 04, 2017 14:18
[2017-12-04] MEDS ORDERED: HYDROcodone/APAP 5 MG/325 MG (LORTAB) TAB PO PRN ×2 (14:45)
[2017-12-04] MEDS: fluCOnazole (DIFLUCAN) 100 MG TAB PO SCH (15:08)
[2017-12-04] MEDS ORDERED: PATIENT MAY USE OWN MED,SINGLE MED PO SCH (15:30)
[2017-12-04] MEDS ORDERED: HYDROcodone/APAP 7.5 MG/325 MG (LORTAB, LORCET PLUS) TABLET PO PRN (15:30)
[2017-12-04] MEDS ORDERED: NITROGLYCERIN 0.4 MG SL TABS BTL 25'S SL PRN (16:45)
[2017-12-04] MEDS ORDERED: morphine INJ 4 MG/ML 1 ML (VIAL/SYRINGE) IV PRN (16:45)
[2017-12-04] MEDS ORDERED: LORA10TA7 PO (16:56)
[2017-12-04] MEDS ORDERED: LEG CRAMPS PM PO (16:56)
[2017-12-04] MEDS ORDERED: HYDR-3816 PO (16:56)
[2017-12-04] MEDS ORDERED: DOCU100C37 PO (16:56)
[2017-12-04] MEDS ORDERED: CITA40TA11 PO (16:56)
[2017-12-04] MEDS: RT-ALBUTEROL SULF 2.5 MG/3 ML PRE-MIX VIAL INH SCH (19:56)
[2017-12-04] MEDS: HYDROcodone/APAP 7.5 MG/325 MG (LORTAB, LORCET PLUS) TABLET PO PRN (20:11)
[2017-12-04] MEDS: CATHETER FLUSH 10 ML SYR IV SCH (20:19)
[2017-12-05] VITALS (7 sets, daily range): BP systolic 101–158; BP diastolic 59–72
[2017-12-05] MEDS: HYDROcodone/APAP 7.5 MG/325 MG (LORTAB, LORCET PLUS) TABLET PO PRN ×5 (00:40→17:39)
[2017-12-05] MEDS: CATHETER FLUSH 10 ML SYR IV SCH ×2 (04:53→14:55)
[2017-12-05 05:40] LABS: CHOLESTEROL 220 MG/DL (< 200); HDL CHOLESTEROL 56 MG/DL (40-60); TRIGLYCERIDES 91 MG/DL (<150); VLDL CHOLESTEROL 18 MG/DL (5-40)
[2017-12-05] MEDS: RT-ALBUTEROL SULF 2.5 MG/3 ML PRE-MIX VIAL INH SCH ×2 (07:45→15:32)
[2017-12-05] MEDS ORDERED: INFLUENZA TRIvalent 2017-2018 0.5 ML/45 MCG SYR IM ONE (07:45)
[2017-12-05] MEDS ORDERED: LORATADINE (CLARITIN) 10 MG TAB PO SCH (09:00)
[2017-12-05] MEDS ORDERED: DOCUSATE SODIUM 100 MG (COLACE) CAP PO SCH (09:00)
[2017-12-05] MEDS ORDERED: SPIRONOLACTONE 100 MG (ALDACTONE) TABLET PO SCH (09:00)
[2017-12-05] MEDS: fluCOnazole (DIFLUCAN) 100 MG TAB PO SCH (09:00)
[2017-12-05] MEDS ORDERED: ASPIRIN E.C. 325 MG (ECOTRIN) TABLET PO SCH (09:00)
[2017-12-05] MEDS ORDERED: NON-FORMULARY MEDICATION 1 EA EA (Citalopram Hydrobromide (Citalopram HBr) 40 MG) PO SCH (09:00)
[2017-12-05] MEDS ORDERED: REGADENOSON 0.4 MG/5 ML SYR (LEXISCAN) IV ONE ×2 (12:35→13:00)
--- NOTE | 2017-12-05 13:13 | Cardiology Progress Note ---
Cardiology SOAP Progress Note Subjective: Episode of chest discomfort this morning. Objective: I&O/Vital Signs Vital Sign - Last 12Hours 12/05/17 12/05/17 12/05/17 12/05/17 04:00 04:30 07:00 07:45 Temp 97.3 Pulse 63 57 Resp 19 B/P (MAP) 101/69 (80) Pulse Ox 97 98 98 O2 Delivery Room Air Room Air Room Air 12/05/17 12/05/17 12/05/17 12/05/17 08:15 08:21 08:30 12:41 Temp 96.6 Pulse 77 67 Resp 16 B/P (MAP) 106/59 (75) 127/65 (85) Pulse Ox 97 96 98 O2 Delivery Room Air Room Air Room Air 12/05/17 12/05/17 12:53 12:54 Pulse 78 83 B/P (MAP) 158/72 (100) Pulse Ox 99 99 Intake and Output 12/05/17 00:00 Output Total 200 ml Balance -200 ml Weight (Pounds): 239 Weight (Ounces): 5.0 Weight (Calculated Kilograms): 108.679281 Constitutional: No appears stated age, No AAO x 3, No apparent distress, No PERRL, No well-developed, No well-nourished, No other Respiratory: No accessory muscle use, No respiratory distress, No chest tender , No chest expansion is symmetric, No chest is bilaterally symmetric, No lungs clear to percussion, No lungs clear to auscultation, No crackles, No rhonchi, No rales, No stridor, No wheezing, No pleural rub, No other Cardiovascular: regular rate-rhythm, No irregularly irregular, No extra beats, No parasternal heave is noted, No JVD, No edema, No bradycardia, No tachycardia , No point of maximal impulse, No cardiac thrills are palpable, No S1 and S2, No gallop/S3, No gallop/S4, No diastolic murmur, No systolic murmur, No friction rub, No click, No other Gastrointestional: No tender, No soft, No round, No distended, No pulsatile mass, No organomegaly, No guarding, No rebound, No tenderness, No hernia, No mass, No audible bowel sounds, No abnormal bowel sounds, No abdominal bruits, No spleenomegaly, No other Extremities: No normal range of motion, No non-tender, No normal inspection, No pedal edema, No calf tenderness, No normal capillary refill, No pelvis stable , No calf tenderness, No inflammation, No pedal edema, No slow capillary refill , No swelling, No other, No abrasion, No clubbing, No cyanosis, No ecchymosis, No laceration, No no lower extremity edema bilateral, No significant edema, No tenderness, No wound Neurologic/Psychiatric: No armed security professional II-XII nml as tested, No no motor/sensory deficits, No alert, No normal mood/affect, No oriented x 3, No abnormal cerebellar tests, No abnormal armed security professional II-XII, No abnormal gait, No aphasia, No EOM palsy, No facial droop, No motor weakness, No sensory deficit, No depressed affect, No disoriented x 3, No other, No grossly intact, No power is 5/5 both on sides Skin: No normal color, No warm/dry, No cyanosis, No cool, No diaphoresis, No damp, No ecchymosis, No jaundice, No mottled, No pallor, No rash, No tattoos/ piercings, No ulcerations, No rash on exposed areas, No ulcerations on exposed areas, No other Results/Procedures: Labs Laboratory Tests 12/04/17 14:55: Troponin I < 0.30 12/04/17 18:46: Glucometer 51*L 12/04/17 20:38: Troponin I < 0.30 12/05/17 04:30: Triglycerides Level 91, Cholesterol Level 220H, LDL Cholesterol Direct 146H, VLDL Cholesterol 18, HDL Cholesterol 56 A/P: Assessment/Dx: Chest pain, active smoking, elevated d-dimer, recent knee surgery, hyperlipidemia. Plan: Chest pain with elevated d-dimer. Because of recent knee surgery CT angiography of the chest was done which ruled out pulmonary embolism. Patient has history of active smoking and premature coronary artery disease in the family therefore acute coronary syndrome was ruled out with serial troponins. EKG is negative. Pharmacological nuclear stress test today. I will also request an echocardiogram. Smoking cessation was strongly recommended. Hyperlipidemia: Start Lipitor. Thank you for your consultation. Please call me if you have any questions. Noam Winters MD, FACP, FACC, FSCAI, FHRS, CCDS Interventional Cardiology Cardiac Electrophysiology Vascular Medicine and Endovascular Interventions Clinical Quality Measures AMI/AHF: ASA po Prior to arrival: Desirae Ferguson MD Dec 05, 2017 1:13 pm
--- NOTE | 2017-12-05 16:04 | Progress Note-Hospitalist ---
Standard Progress Note Progress Notes/Assess & Plan Date Seen 12/05/17 Time Seen by Provider: 15:54 Diagnosis Assessment: Chest pain with multiple risk factors for acute coronary syndrome PCOS Acute vaginal yeast infection Asthma with rare flare not on MDI's for years Former smoker of cloves Recent left knee arthroscopy 11/25/[address] chest for PE as source of CP Gastric bypass vitamin deficiencies Assess & Plan/Chief Complaint The patient is a 42-year-old white female who was admitted yesterday with the complaint of chest pain of acute onset. The patient had previously had a left anterior cruciate ligament repair 7-10 days ago. She stated that with the acute onset of pain she feared a possible pulmonary embolus. Workup in the emergency room showed this not to be the case. She has a very modest past history of smoking. She has previously undergone bariatric surgery for weight loss. She had an endometrial ablation but does not have hot flashes. She is not hypertensive or diabetic. She has been seen by Dr. Winters. He has performed a nuclear stress test which was negative. Physical exam: The patient appears stated age. She is alert and jovial. Lungs are clear to auscultation. CV is regular without murmur. Abdomen is firm and enlarged. Left leg is an orthopedic device. Impression: Chest pain not myocardial. 2.recent anterior cruciate ligament reconstruction, left Plan: Discharge Labs Laboratory Tests 12/04/17 10:30 Final Diagnosis Chest pain not myocardial GIGI GARCIA MD Dec 05, 2017 16:04
[2017-12-05] MEDS ORDERED: ATORVASTATIN 10 MG (LIPITOR) TABLET PO SCH (21:00)
--- NOTE | 2017-12-05 21:35 | STRESS TEST ---
DATE OF SERVICE: 12/05/2017 PHARMACOLOGICAL NUCLEAR STRESS TEST ATTENDING PHYSICIAN: Dr. Mariah Regan. PERFORMING PHYSICIAN: Dr. Noam Winters. INDICATION: Chest pain, active smoking. PROCEDURE DETAILS: The patient was brought to the stress lab after informed consent was taken. All the risks and complications were explained in detail. Pharmacological nuclear stress test was performed according to the protocol. Lexiscan 0.4 mg IV was given. Low grade exercise was performed. Baseline EKG showed sinus rhythm at 67 BPM. Blood pressure 127/65 mmHg. Maximum heart rate 109 BPM with blood pressure 158/72 mmHg. 11.0 mCi of Myoview were given for rest imaging and 31.0 mCi Myoview were given for stress imaging. TID 1.04. EF 65%. There is a fixed apical defect which is most likely an artifact considering normal wall motion on gated images. CONCLUSION: 1. Pharmacological stress test was negative for ischemia. 2. Normal LV function with no wall motion abnormalities. 3. There is a fixed apical defect which is likely an artifact considering normal wall motion. Job ID: [id number] DocumentID: [id number] Dictated Date: 12/05/2017 15:22:47 Deputy Editor In Chief Date: 12/05/2017 19:30:04 Dictated By: ISABELLE WINTERS MD
== END 2017-12-05 17:16 | disposition home or self-care (01) ==
LOC: EDUNIT# 09:03 → ER 09:05 → UNDOADMOB 13:43 → ICU 13:43 → UNDODISOB 12-05 18:00
PROVIDERS: ADMIT Internal Medicine; ATTEND Internal Medicine
DX: R07.89 Other chest pain (principal); E28.2 Polycystic ovarian syndrome; B37.3 Candidiasis of vulva and vagina; J45.909 Unspecified asthma, uncomplicated; Z98.84 Bariatric surgery status; E87.5 Hyperkalemia; R79.1 Abnormal coagulation profile; Z98.890 Other specified postprocedural states; Z82.49 Family history of ischemic heart disease and other diseases of the circulatory system; Z79.84 Long term (current) use of oral hypoglycemic drugs; Z79.899 Other long term (current) drug therapy
CPT/HCPCS: 36415; 71045; 71275; 78452; 80053; 80061; 82962; 83735; 83874; 84484; 85025; 85379; 85610; 85730; 93005; 93017; 93041; 93306; 94640

== ENCOUNTER → 2018-03-24 | Outpatient (CLI) | payer BC, OTHER ==
[~2018-03-24] MED LIST changes: +CITA40TA11 PO; +DOCU100C37 PO; +HYDR-34 PO; +LEG CRAMPS PM PO; +LORA10TA7 PO; -METF1000 PO; +METF10002 PO
--- NOTE | 2018-03-24 12:34 | Diagnostic Imaging Report ---
Indication: Routine screening. Comparison is made with prior study from 11/10/2016 and 08/01/2015. 2-D and 3-D bilateral screening mammography was performed with CAD. Findings: Both breasts are heterogeneously dense, limiting the sensitivity of mammography. No dominant mass or malignant-appearing microcalcifications are seen. Axillae are unremarkable. Impression: BI-RADS category 1. No mammographic features suspicious for malignancy identified. ACR BI-RADS Category 1: Negative. Result letter will be mailed to the patient. Note: At least 10% of breast cancer is not imaged by mammography. Dictated by: Dictated on workstation # [id number]
== END ==
LOC: RAD 09:08
PROVIDERS: ATTEND Midwife
DX: Z12.31 Encounter for screening mammogram for malignant neoplasm of breast (principal)
CPT/HCPCS: 77067

== ENCOUNTER 2018-09-18 20:39 | Emergency (ER) | payer BC, OTHER ==
[~2018-09-18] VITALS: Ht 167.6 cm; Wt 108.9 kg
[~2018-09-18 20:39] MED LIST changes: +METF-399 PO; -METF10002 PO; -SPIR100T2 PO; +SPIR100T4 PO
[2018-09-18 21:47] LABS: BILIRUBIN,URINE NEGATIVE (NEGATIVE); CLARITY,URINE CLEAR; COLOR,URINE YELLOW; GLUCOSE, URINE (UA) NEGATIVE (NEGATIVE); KETONES,URINE 2+ (NEGATIVE); LEUKOCYTE ESTERASE ,URINE 1+ (NEGATIVE); NITRITE,URINE NEGATIVE (NEGATIVE); PH,URINE 6.5 (5-9); PROTEIN,URINE 1+ (NEGATIVE); UROBILINOGEN,URINE 1 MG/DL (NORMAL)
[2018-09-18 21:58] LABS: BASOPHILS % (AUTO) 0 % (0-10); EOSINOPHILS # (AUTO) 0.1 10^3/uL (0.0-0.3); EOSINOPHILS % (AUTO) 0 % (0-10); HEMATOCRIT 43 % (35-52); HEMOGLOBIN 14.8 G/DL (11.5-16.0); LYMPHOCYTES # (AUTO) 1.3 X 10^3 (1.0-4.0); LYMPHOCYTES % (AUTO) 11 % (12-44); MEAN CORPUSCULAR HEMOGLOBIN 32 PG (25-34); MEAN CORPUSCULAR HGB CONC 35 G/DL (32-36); MEAN CORPUSCULAR VOLUME 92 FL (80-99); MEAN PLATELET VOLUME 9.1 FL (7.4-10.4); MONOCYTES # (AUTO) 0.4 X 10^3 (0.0-1.0); MONOCYTES % (AUTO) 4 % (0-12); NEUTROPHILS # (AUTO) 9.5 X 10^3 (1.8-7.8); NEUTROPHILS % (AUTO) 84 % (42-75); PLATELET COUNT 236 10^3/uL (130-400); RED BLOOD COUNT 4.64 10^6/uL (4.35-5.85); WHITE BLOOD COUNT 11.2 10^3/uL (4.3-11.0)
[2018-09-18 22:00] LABS: BACTERIA,URINE FEW /HPF
[2018-09-18] MEDS ORDERED: KETOROLAC 30 MG/ML VIAL IVP ONE (22:00)
[2018-09-18 22:11] LABS: ALANINE AMINOTRANSFERASE 23 U/L (0-55); ALBUMIN 4.3 GM/DL (3.2-4.5); ALKALINE PHOSPHATASE 55 U/L (40-136); BILIRUBIN,TOTAL 0.4 MG/DL (0.1-1.0); BUN/CREATININE RATIO 17; CALCIUM 9.6 MG/DL (8.5-10.1); CARBON DIOXIDE 24 MMOL/L (21-32); CHLORIDE 102 MMOL/L (98-107); CREATININE SERUM 0.71 MG/DL (0.60-1.30); GFR ESTIMATED > 60; GLUCOSE 119 MG/DL (70-105); POTASSIUM 4.3 MMOL/L (3.6-5.0); SODIUM 135 MMOL/L (135-145); TOTAL PROTEIN 6.9 GM/DL (6.4-8.2)
[2018-09-18 22:23] LABS: AMPHETAMINE SCREEN, URINE NEGATIVE (NEGATIVE); BARBITURATE SCREEN URINE NEGATIVE (NEGATIVE); BENZODIAZEPINES SCREEN URINE NEGATIVE (NEGATIVE); CANNABINOID SCREEN, URINE POSITIVE (NEGATIVE); COCAINE SCREEN URINE NEGATIVE (NEGATIVE); METHADONE STAT NEGATIVE (NEGATIVE); METHAMPHETAMINE SCREEN URINE S NEGATIVE (NEGATIVE); OPIATE SCREEN URINE POSITIVE (NEGATIVE); OXYCODONE STAT NEGATIVE (NEGATIVE); PROPOXYPHENE STAT NEGATIVE (NEGATIVE); TRICYCLIC ANTIDEPRESSANTS SCRE NEGATIVE (NEGATIVE)
[2018-09-18] MEDS ORDERED: FAMOTIDINE 20 MG (PEPCID) TABLET PO STA (22:23)
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
[2018-09-18] MEDS ORDERED: ANTACID SUSP 30 ML UDC (MYLANTA) PO ONE (22:30)
[2018-09-18] MEDS ORDERED: LIDOCAINE 2% VISCOUS 15 ML UDC PO ONE (22:30)
[2018-09-19 00:40] VITALS: BP 130/66
[2018-09-19] MEDS ORDERED: SUCR1TAB PO (06:56)
--- NOTE | 2018-09-19 07:28 | Diagnostic Imaging Report ---
INDICATION: Abdominal pain. COMPARISON: None available. FINDINGS: There are surgical changes from herniorrhaphy noted. Nonobstructive bowel gas pattern. No evidence of free intraperitoneal air. There may be a surgical staple line in the left upper quadrant. No abnormal mineralizations outside pelvic phlebolith. Normal regional skeleton. IMPRESSION: Nonobstructive bowel gas pattern. Dictated by: Dictated on workstation # [id number]
== END 2018-09-19 00:41 | disposition home or self-care (01) ==
LOC: EDUNIT# 20:39 → ER 20:40
DX: R10.13 Epigastric pain (principal); J45.909 Unspecified asthma, uncomplicated; F41.9 Anxiety disorder, unspecified; F43.10 Post-traumatic stress disorder, unspecified; F32.9 Major depressive disorder, single episode, unspecified; Z82.49 Family history of ischemic heart disease and other diseases of the circulatory system; Z87.19 Personal history of other diseases of the digestive system; Z87.448 Personal history of other diseases of urinary system; Z88.6 Allergy status to analgesic agent; Z79.84 Long term (current) use of oral hypoglycemic drugs; Z87.891 Personal history of nicotine dependence; Z98.84 Bariatric surgery status; Z90.89 Acquired absence of other organs; Z98.51 Tubal ligation status
CPT/HCPCS: 36415; 74018; 80053; 80306; 81000; 83690; 84703; 85025; 86141

== ENCOUNTER 2018-09-19 04:25 | Emergency (ER) | payer BC, OTHER ==
[~2018-09-19] VITALS: Ht 167.6 cm; Wt 109.0 kg
[2018-09-19] MEDS ORDERED: NS IV 1000 ML 1,000 ML IV SCH (05:22)
[2018-09-19] MEDS ORDERED: PROMETHAZINE INJ 25 MG/ML (PHENERGAN) AMP IVP ONE (05:30)
[2018-09-19] MEDS ORDERED: fentaNYL INJECTION 100 MCG/2 ML AMP IVP ONE (05:30)
--- NOTE | 2018-09-19 05:30 | ED Abdominal Pain ---
General Stated Complaint: ABD PAIN Source of Information: Patient, Family (Daughter) Exam Limitations: No Limitations (ERICA PACHECO) History of Present Illness Date Seen by Provider: Sep 19, 2018 Time Seen by Provider: 05:18 Initial Comments The patient re-presents to the ER for the second time in 8 hours by private conveyance with her daughter and chief complaint she's having sharp stabbing severe abdominal pain in the midepigastric region. She is also having nausea. She was seen earlier and her symptoms were resolving by the time she got here and went away with a GI cocktail and shot of Toradol. Her nausea had already resolved. She went home 8 to [facility] and began to have a recurrence of her nausea and pain. She does occasionally drink alcohol but had no elevation in her lipase at that time. She has had her gallbladder and appendix taken out. She also has had a gastric bypass 14 years ago by a surgeon in [place]. She follows with Dr. Sanchez in [place], [place] and had an EGD many years ago. She says she's having constipation and hard stool. She's been nauseated but unable to vomit. She took one of her left over tablets of Zofran and had no relief of her nausea symptoms or pain. She says she wants something for the pain and something for the nausea. (ERICA PACHECO) Allergies and Home Medications Allergies Coded Allergies: NSAIDS (Non-Steroidal Anti-Inflamma (Verified Allergy, Unknown, 12/04/17) States not to take due to gastric bypass. aspirin (Verified Allergy, Unknown, 12/04/17) States instructed not to take due to gastric bypass Home Medications Citalopram Hydrobromide 40 Mg Tablet, 40 MG PO DAILY, (Reported) Docusate Sodium 100 Mg Capsule, 100-300 MG PO DAILY, (Reported) TAKES 1 TO 3 (100 MG) CAPSULES Hydrocodone Bit/Acetaminophen 1 Each Tablet, 1-2 TAB PO Q6H PRN for PAIN- MODERATE, (Reported) Loratadine 10 Mg Tablet, 10 MG PO DAILY, (Reported) Metformin HCl 1,000 Mg Tablet, 1,000 MG PO DAILY, (Reported) LAST FILLED 02/18/17 #180 Spironolactone 100 Mg Tablet, 100 MG PO DAILY, (Reported) LAST FILLED 08/21/17 #90 [Leg Cramps Pm] , 2 TAB PO PRN PRN for LEG CRAMPS, (Reported) Patient Home Medication List Home Medication List Reviewed: Yes (ERICA PACHECO) Review of Systems Review of Systems Constitutional: No chills, No diaphoresis, No fever, No malaise EENTM: No Blurred Vision, No Double Vision Respiratory: Denies Cough, Denies Orthopnea Cardiovascular: Denies Chest Pain, Denies Irregular Heart Rate, Denies Lightheadedness Gastrointestinal: See HPI, Abdominal Pain, Constipated; Denies Diarrhea; Nausea , Poor Appetite, Poor Fluid Intake; Denies Vomiting Genitourinary: Denies Burning, Denies Discharge Musculoskeletal: No back pain, No joint pain (ERICA PACHECO) Past Krbxnzm-Zkkoho-Fuoxxh Hx Patient Social History Alcohol Use: Occasionally Uses Alcohol Beverage of Choice: Beer, Whiskey Recreational Drug Use: No Smoking Status: Former Smoker Type Used: Cigars Former Smoker, Quit: Sep 21, 2017 Recent Foreign Travel: No Contact w/Someone Who Travel: No Recent Hopitalizations: Yes (ERICA PACHECO) Immunizations Up To Date Date of Pneumonia Vaccine: Sep 07, 2016 Date of Influenza Vaccine: Sep 09, 2017 (ERICA PACHECO) Seasonal Allergies Seasonal Allergies: No (ERICA PACHECO) Past Medical History Surgeries: Yes (HERNIA WITH MESH, UTERINE ABLASION, GASTRIC BYPASS) Abdominal, Appendectomy, Breast, Gallbladder, Orthopedic, Tonsillectomy, Tubal Ligation Respiratory: Yes Asthma Currently Using CPAP: No Currently Using BIPAP: No Cardiac: No Neurological: No Reproductive Disorders: Yes Female Reproductive Disorders: Polycystic 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 Sexually Transmitted Disease: No HIV/AIDS: No Genitourinary: No Gastrointestinal: 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, Hernia repair x2) Irritable Bowel Musculoskeletal: No Endocrine: No HEENT: No Cancer: No Psychosocial: Yes Anxiety, PTSD, Depression Integumentary: No Blood Disorders: Yes (Pernicious anemia, Iron deficiency anemia) Adverse Reaction/Blood Tranf: No (ERICA PACHECO) Family Medical History Asthma 19 MOTHER G8 BROTHER Diabetes mellitus 19 FATHER 19 MOTHER FH: heart disease 19 FATHER FHx: depression 19 MOTHER Hypertension 19 MOTHER Parkinson's disease 19 MOTHER Polio 19 MOTHER Heart Disease (ERICA PACHECO) Physical Exam Vital Signs Vital Signs - First Documented 09/19/18 05:17 Temp 96.0 Pulse 70 Resp 19 B/P (MAP) 124/96 (105) Pulse Ox 98 (ORQUIDEA COOLEY MD) Vital Signs Capillary Refill : (ERICA PACHECO) Height/Weight/BMI Height: 5'6.00" Weight: 240lbs. 5.0oz. 108.213317ns; 38.6 BMI Method:Stated General Appearance: WD/WN, mild distress HEENT: PERRL/EOMI, pharynx normal Neck: non-tender, normal inspection Respiratory: lungs clear, normal breath sounds, no respiratory distress, no accessory muscle use Cardiovascular: normal peripheral pulses, regular rate, rhythm, no edema Gastrointestinal: normal bowel sounds, soft, tenderness (mild diffuse tenderness but especially in the midepigastric region. Negative for Urbina sign or McBurney's point tenderness.) Extremities: no pedal edema, normal capillary refill Back: normal inspection, no CVA tenderness Neurologic/Psychiatric: alert, normal mood/affect, oriented x 3 (ERICA PACHECO ) Progress/Results/Core Measures Results/Orders Medications Given in ED Current Medications Medications Dose Ordered Sig/Marisela Route Start Time Stop Time Status Last Admin Dose Admin Fentanyl Citrate 50 mcg ONCE ONCE IVP 09/19/18 05:30 09/19/18 05:31 DC 09/19/18 05:48 50 MCG Iohexol 100 ml ONCE ONCE IV 09/19/18 06:00 09/19/18 06:01 DC 09/19/18 06:06 100 ML Promethazine HCl 25 mg ONCE ONCE IVP 09/19/18 05:30 09/19/18 05:31 DC 09/19/18 05:48 25 MG Sodium Chloride 250 ml ONCE ONCE IV 09/19/18 06:00 09/19/18 06:01 DC 09/19/18 06:06 80 ML (ORQUIDEA COOLEY MD) Vital Signs/I&O 09/19/18 05:17 Temp 96.0 Pulse 70 Resp 19 B/P (MAP) 124/96 (105) Pulse Ox 98 (ORQUIDEA COOLEY MD) Progress Progress Note : Time: 05:30 Progress Note We will try Phenergan and fentanyl for her discomfort followed with a bag of IV saline and a CT of the abdomen and pelvis with contrast. We've ruled out overt colitis by history, pancreatitis by labs, UTI by urine. She could be having adhesions or peptic ulcer disease. If we don't see anything on the CT abdomen pelvis we'll put her on some symptomatic medicines and send her to see Dr. Sanchez or her PCP to get a referral for endoscopy. She is already on Nexium and has received famotidine just a few hours ago with a GI cocktail. The simethicone seemed to coincide with the timing of her spontaneous pain relief earlier in the shift. Other than Zofran she has not tried taking anything else. With her nausea we will not attempt another GI cocktail at this time. (ERICA PACHECO) Progress Note : Progress Note 0630: Overall patient is feeling much better. CT results reviewed and showed no significant findings other than a short segment of enteritis. No free air or other indication of significant abnormalities. We did discuss outpatient options. Patient states that she hasn't seen Dr. Sanchez since 2011. We did discuss that she needs to see GI specialist and/or surgeon as she needs upper endoscopy. She verbalized agreement. We will initiate Carafate outpatient. Discharged home with return precautions. Patient verbalize understanding instructions and agreement with plan. (ORQUIDEA COOLEY MD) Diagnostic Imaging Diagonstic Imaging: CT (with contrast) Plain Films/CT/US/NM/MRI: abdomen, pelvis Reviewed: Reviewed Night [facility] Study, Reviewed by Me (ERICA PACHECO) Comments VIA [facility]. [place], [place] NAME: REUBEN [facility] REC#: [id number] PT STATUS: REG ER : 1975 PHYSICIAN: ERICA PACHECO MD ADMIT DATE: 09/19/18/ER Draft Date of Exam:09/19/18 CT ABDOMEN/PELVIS W PROCEDURE: CT abdomen and pelvis with contrast. TECHNIQUE: Multiple contiguous axial images were obtained through the abdomen and pelvis after administration of intravenous contrast. INDICATION: Mid abdominal pain. History of gastric bypass, cholecystectomy and appendectomy. COMPARISON: None available. FINDINGS: Lower chest: The lung bases are clear. No pericardial or pleural effusion. Peritoneum: No free intraperitoneal air or fluid. Liver and biliary system: No concerning focal hepatic lesion. There are a few scattered tiny less than 5 mm hypodensities which are likely cysts. Cholecystectomy. The common bile duct is mildly dilated likely due to post cholecystectomy state. It demonstrates smooth distal tapering. Spleen and Pancreas: Spleen is normal. The pancreas enhances normally without mass lesion or peripancreatic inflammatory changes. Adrenals: Normal. tract: The kidneys enhance normally without suspicious mass or obstruction. Urinary bladder is distended without wall thickening. Uterus is normal in appearance. No adnexal mass. GI tract: There are surgical changes of Jennifer-en-Y gastric bypass. Within the left upper quadrant, there is a contiguous loop of jejunum which has wall thickening but no pneumatosis is indicative of active enteritis. No bowel obstruction. No pericolonic inflammatory changes. Appendectomy. Vasculature and Lymph nodes: Normal caliber aorta. No abdominal or pelvic lymphadenopathy. Musculoskeletal: No concerning osseous lesion. IMPRESSION: 1. Short segment of active enteritis in the left upper quadrant. No perforation, abscess or pneumatosis. Additionally, there is no bowel obstruction. Dictated on workstation # [id number] Dict: 09/19/1807 Trans: 09/19/18 0616 [facility] [id number] Interpreted by: DANIE WOLFF MD Electronically signed by: (ORQUIDEA COOLEY MD) Transfer of Care Time: 06:03 Care transferred to: [place] (ERICA PACHECO) Departure Impression Primary Impression: Abdominal pain Qualified Codes: R10.13 - Epigastric pain Additional Impressions: Nausea alone History of gastric bypass Disposition: HOME, SELF-CARE Condition: Improved Departure-Patient Inst. Decision time for Depature: 06:56 (ORQUIDEA COOLEY MD) Referrals: SARI BOYLE DO (PCP) Primary Care Physician NEVAEH BA BRETT D DO JENKINS, XAVIER M MD Patient Instructions: Acute Abdomen (Belly Pain), Adult (DC), Nausea and Vomiting, Adult (DC) Add. Discharge Instructions: Clear liquid diet for the next 24 hours and then advance as tolerated. Avoid foods that increase acid or gas such as spicy foods, meat, cheese, milk or gas forming vegetables. You should take your Nexium twice daily for the next 7 days and then return to normal prescription. You should take the Carafate tablet before each meal and at bedtime but at least prior to each meal. Chew up the tablets into a slurry and then swallow. You may take acetaminophen 1000 mg every 6-8 hours as needed for pain. Return for worse pain, fever, vomiting, weakness, breathing problems or other concerns as needed. Scripts Sucralfate (Sucralfate) 1 Gm Tablet 1 GM PO HS, #60 TAB 0 Refills Chew tab to a slurry and then swallow Prov: ORQUIDEA COOLEY MD 09/19/18 ERICA PACHECO Sep 19, 2018 05:30 ORQUIDEA COOLEY MD Sep 19, 2018 06:41
[2018-09-19] MEDS ORDERED: IOHEXOL 350 MG/ML 100 ML (OMNIPAQUE 350) VIAL IV ONE (06:00)
[2018-09-19] MEDS ORDERED: NS 250 ML (IVPB) BAG IV ONE (06:00)
--- NOTE | 2018-09-19 06:17 | Diagnostic Imaging Report ---
PROCEDURE: CT abdomen and pelvis with contrast. TECHNIQUE: Multiple contiguous axial images were obtained through the abdomen and pelvis after administration of intravenous contrast. INDICATION: Mid abdominal pain. History of gastric bypass, cholecystectomy and appendectomy. COMPARISON: None available. FINDINGS: Lower chest: The lung bases are clear. No pericardial or pleural effusion. Peritoneum: No free intraperitoneal air or fluid. Liver and biliary system: No concerning focal hepatic lesion. There are a few scattered tiny less than 5 mm hypodensities which are likely cysts. Cholecystectomy. The common bile duct is mildly dilated likely due to post cholecystectomy state. It demonstrates smooth distal tapering. Spleen and Pancreas: Spleen is normal. The pancreas enhances normally without mass lesion or peripancreatic inflammatory changes. Adrenals: Normal. tract: The kidneys enhance normally without suspicious mass or obstruction. Urinary bladder is distended without wall thickening. Uterus is normal in appearance. No adnexal mass. GI tract: There are surgical changes of Jennifer-en-Y gastric bypass. Within the left upper quadrant, there is a contiguous loop of jejunum which has wall thickening but no pneumatosis is indicative of active enteritis. No bowel obstruction. No pericolonic inflammatory changes. Appendectomy. Vasculature and Lymph nodes: Normal caliber aorta. No abdominal or pelvic lymphadenopathy. Musculoskeletal: No concerning osseous lesion. IMPRESSION: 1. Short segment of active enteritis in the left upper quadrant. No perforation, abscess or pneumatosis. Additionally, there is no bowel obstruction. Dictated by: Dictated on workstation # [id number]
[2018-09-19] MEDS ORDERED: SUCR1TAB PO (06:56)
[2018-09-19] MEDS ORDERED: SUCRALFATE 1 GM (CARAFATE) TAB PO ONE (07:30)
[2018-09-19 07:33] VITALS: BP 124/96
== END 2018-09-19 07:33 | disposition home or self-care (01) ==
LOC: EDUNIT# 04:25 → ER 04:26
DX: R10.13 Epigastric pain (principal); R11.0 Nausea; J45.909 Unspecified asthma, uncomplicated; F41.9 Anxiety disorder, unspecified; F43.10 Post-traumatic stress disorder, unspecified; F32.9 Major depressive disorder, single episode, unspecified; D50.9 Iron deficiency anemia, unspecified; Z82.49 Family history of ischemic heart disease and other diseases of the circulatory system; Z87.19 Personal history of other diseases of the digestive system; Z87.448 Personal history of other diseases of urinary system; Z88.6 Allergy status to analgesic agent; Z88.8 Allergy status to other drugs, medicaments and biological substances; Z79.84 Long term (current) use of oral hypoglycemic drugs; Z98.84 Bariatric surgery status; Z87.891 Personal history of nicotine dependence; Z90.89 Acquired absence of other organs; Z98.51 Tubal ligation status; Z98.890 Other specified postprocedural states
CPT/HCPCS: 74177; 96361; 96374; 96375

== ENCOUNTER → 2020-10-31 | Outpatient (CLI) | payer BC, OTHER ==
[~2020-10-31] MED LIST changes: +SUCR1TAB PO; -TRAM50TA2; +TRM50T
--- NOTE | 2020-10-31 12:32 | Diagnostic Imaging Report ---
INDICATION: Routine screening. Comparison is made with prior mammogram from 03/24/2018 and 11/10/2016. 2-D and 3-D bilateral screening mammography was performed with CAD. Both breasts are heterogeneously dense, limiting the sensitivity of mammography. The parenchymal pattern is stable. No mass or malignant appearing microcalcifications are seen. Axillae are unremarkable. IMPRESSION: BI-RADS Category 1 No mammographic features suspicious for malignancy are identified. ACR BI-RADS Category 1: Negative. Result letter will be mailed to the patient. Note: At least 10% of breast cancer is not imaged by mammography. Dictated by: Dictated on workstation # [id number]
== END ==
LOC: RAD 08:39
DX: Z12.31 Encounter for screening mammogram for malignant neoplasm of breast (principal); Z01.419 Encounter for gynecological examination (general) (routine) without abnormal findings
CPT/HCPCS: 77063; 77067

== ENCOUNTER → 2020-11-12 | Outpatient (CLI) | payer BC ==
--- NOTE | 2020-11-12 14:33 | Diagnostic Imaging Report ---
PROCEDURE: MR imaging cervical spine without contrast. TECHNIQUE: Multiplanar, multisequence MR imaging of the cervical spine was performed without contrast. INDICATION: Degenerative disc disease. Chronic neck pain. COMPARISON: None. FINDINGS: Normal alignment. Vertebral body heights are preserved. Modic type I degenerative endplate changes at T1-T2. Bone marrow signal is otherwise unremarkable. No abnormal signal in the cervical spinal cord. Partially visualized retrocerebellar cyst versus shayla cisterna magna. C2-C3: Normal. C3-C4: Right paracentral disc protrusion results in moderate right neural foraminal narrowing. Mild spinal canal narrowing. C4-C5: Right paracentral disc protrusion results in no substantial spinal canal or neural foraminal narrowing. C5-C6: Disc osteophyte complex results in severe left and moderate right neural foraminal narrowing. No spinal canal narrowing. C6-C7: Uncovertebral joint hypertrophy results in moderate bilateral neural foraminal narrowing. No spinal canal narrowing. C7-T1: No spinal canal or neural foraminal narrowing. IMPRESSION: 1. 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 2. No high-grade spinal canal stenosis. 3. No abnormal signal in the cervical spinal cord. Dictated by: Dictated on workstation # [id number]
== END ==
LOC: RAD 13:15
DX: M47.812 Spondylosis without myelopathy or radiculopathy, cervical region (principal); M48.02 Spinal stenosis, cervical region
CPT/HCPCS: 72141

== ENCOUNTER → 2021-09-02 | Outpatient (CLI) | payer BC, OTHER ==
--- NOTE | 2021-09-02 11:29 | Diagnostic Imaging Report ---
PROCEDURE: MR imaging of the brain without contrast. TECHNIQUE: Multiplanar, multisequence MR imaging of the brain was performed without contrast. INDICATION: Loss of smell and brain fog. Patient has recent history of COVID 19. No prior studies are available for comparison. The ventricles and sulci are within normal limits. No diffusion restriction is identified to suggest acute ischemia. The normal expected flow-voids within the carotid siphons are seen. No acute intra-axial or extra-axial hemorrhage is detected. The corpus callosum is unremarkable. The sella and parasellar structures are unremarkable. IMPRESSION: Unremarkable noncontrast MRI of the brain. Report was faxed to [facility] by [email or web address] at 11:28AM. Dictated by: Dictated on workstation # [id number]
== END ==
LOC: RAD 08:41
PROVIDERS: ATTEND Physician Assistant
DX: R41.89 Other symptoms and signs involving cognitive functions and awareness (principal); H53.9 Unspecified visual disturbance
CPT/HCPCS: 70551